=== PATIENT | male | born 1950 | race Caucasian/White ===

== ENCOUNTER 2023-10-13 09:32 | Inpatient (IN) | payer OTHER ==
[2023-10-13 11:12] LABS: #Basophils 0.1 thou/uL (0.0-0.2); #Eosinphils 0.3 thou/uL (0.0-0.7); #Monocytes 0.7 thou/uL (0.11-0.59); #Neutrophils 7.6 thou/uL (1.40-6.50); %Basophils 0.9 % (0.0-1.0); %Eosinophils 2.7 % (0.0-10.0); %Lymphocytes 10.7 % (21.0-51.0); %Monocytes 7.2 % (0.0-10.0); %Neutrophils 78.2 % (42.0-75.0); Hematocrit 44.9 % (42.0-52.0); Mean Corpuscular HGB CONC 35.6 g/dL (32.0-36.0); Mean Platelet Volume 8.2 fL (7.4-10.4); Platelet Count 328 10x3/uL (130-400); RBC Distribution Width 12.2 % (11.5-14.5); Red Blood Cell (RBC) Count 5.16 mill/uL (4.70-6.10); White Blood Cell (WBC) Count 9.8 10x3/uL (4.8-10.8)
[2023-10-13 11:20] LABS: INR-International Normal Ratio 1.1; Prothrombin Time 14.8 sec (12.0-14.7)
[2023-10-13 11:21] LABS: PTT 30.1 sec (22.9-36.1)
[2023-10-13 11:37] LABS: ALT (SGPT) 9 U/L (8-55); AST (SGOT) 11 U/L (5-34); Albumin 3.6 g/dL (3.4-4.8); Alkaline Phosphatase 85 U/L (40-110); Anion Gap 12 mmol/L (10-20); BUN (Urea Nitrogen) 12 mg/dL (8.4-25.7); Bilirubin, Total 0.7 mg/dL (0.2-1.2); Calc. Creatinine Clearance 0 mL/min (70-130); Calcium 9.1 mg/dL (7.8-10.44); Carbon Dioxide 24 mmol/L (23-31); Chloride 100 mmol/L (98-107); Estimated GFR 81; Globulin 3.6 g/dL (2.4-3.5); Glucose 245 mg/dL (83-110); Potassium 4.3 mmol/L (3.5-5.1); Protein, Total 7.2 g/dL (5.8-8.1); Sodium 132 mmol/L (136-145)
[2023-10-13 11:38] LABS: Acetaminophen Less than 10 mcg/mL (10.0-30.0); Alcohol Less than 10.0 mg/dL (Less than 10); Lipase 38 U/L (8-78); Salicylate Less than 8.0 mg/dL (15.0-30.0)
[2023-10-13 11:41] LABS: Troponin I Less than 0.010 ng/mL (< 0.028)
[2023-10-13] MEDS ORDERED: Aspirin Chewable 81 MG TAB ONE (11:45)
[2023-10-13 11:52] LABS: Bacteria/HPF None Seen HPF (None Seen); Bilirubin Negative (Negative); Blood, Urine Negative (Negative); CAUTI Indications for Culture Alt mental st,lethar; Clarity Clear (Clear); Glucose, Urine (Dipstick) 500 mg/dL (Negative); Ketone, Urine Negative (Negative); Leukocyte Negative Leu/uL (Negative); Nitrite Negative (Negative); Protein, Urine (Dipstick) 50 mg/dL (Neg-Trace); RBC/HPF None Seen HPF (0-3); Specific Gravity, Urine 1.024 (1.002-1.036); Squamous Epithelial 0-3 HPF (0-3); WBC/HPF 0-3 HPF (0-3)
[2023-10-13 11:54] LABS: Urine Culture Reflex No No
[2023-10-13 12:01] LABS: Amphetamine Not Detected (NotDetected); Barbiturates Screen Not Detected (NotDetected); Benzodiazepine Screen Detected (NotDetected); Cocaine Metabolite Screen Not Detected (NotDetected); Methadone Not Detected (NotDetected); Methamphetamine Not Detected (NotDetected); Opiate Screen Not Detected (NotDetected); Oxycodone Screen Not Detected (NotDetected); Phencyclidine (PCP) Not Detected (NotDetected); THC/Cannabinoid Screen Not Detected (NotDetected); Tricyclic Screen Not Detected (NotDetected)
[2023-10-13] MEDS ORDERED: hydrALAZINE 20 MG/ML VIAL SLOW IVP PRN (12:18)
[2023-10-13] MEDS ORDERED: Acetaminophen 650 MG Suppository PR PRN (12:18)
[2023-10-13] MEDS ORDERED: Ondansetron PF 4 MG/2 ML Vial IVP PRN (12:18)
[2023-10-13] MEDS ORDERED: Ondansetron ODT 4 MG TAB PO PRN (12:18)
[2023-10-13] MEDS ORDERED: Magnevist 469MG/ML 20 ML VIAL ONE (13:38)
[2023-10-13 14:55] VITALS: BMI 29.1
[2023-10-13] MEDS: Atorvastatin Calcium 40 MG TAB PO SCH (21:46)
[2023-10-14 05:26] LABS: #Basophils 0.1 thou/uL (0.0-0.2); #Eosinphils 0.3 thou/uL (0.0-0.7); #Monocytes 0.9 thou/uL (0.11-0.59); #Neutrophils 7.2 thou/uL (1.40-6.50); %Basophils 0.8 % (0.0-1.0); %Eosinophils 2.5 % (0.0-10.0); %Lymphocytes 15.2 % (21.0-51.0); %Monocytes 9.4 % (0.0-10.0); %Neutrophils 71.8 % (42.0-75.0); Hematocrit 41.1 % (42.0-52.0); Hemoglobin 14.4 g/dL (14.0-18.0); Mean Corpuscular Hemoglobin 31.1 pg (27.0-31.0); Mean Corpuscular Volume 88.8 fl (78.0-98.0); Mean Platelet Volume 8.2 fL (7.4-10.4); Platelet Count 320 10x3/uL (130-400); RBC Distribution Width 12.3 % (11.5-14.5); Red Blood Cell (RBC) Count 4.63 mill/uL (4.70-6.10)
[2023-10-14 05:56] LABS: Anion Gap 13 mmol/L (10-20); BUN (Urea Nitrogen) 14 mg/dL (8.4-25.7); Calc. Creatinine Clearance 98 mL/min (70-130); Calcium 9.1 mg/dL (7.8-10.44); Carbon Dioxide 22 mmol/L (23-31); Cardiac Risk 5.1 (Less than 4.5); Chloride 102 mmol/L (98-107); Cholesterol 173 mg/dl (< 200 Desired); Estimated GFR 90; Glucose 263 mg/dL (83-110); HDL Cholesterol 34 mg/dL (>60 Neg Risk); LDL Cholesterol, Calculated 104 mg/dL; Potassium 4.4 mmol/L (3.5-5.1); Sodium 133 mmol/L (136-145); Triglycerides 175 mg/dL (Less than 150)
[2023-10-14] MEDS ORDERED: Dextrose 5% in Water 1,000 ML IV PRN (08:01)
[2023-10-14] MEDS ORDERED: Dextrose 50% Abboject 50 ML SYRINGE SLOW IVP PRN (08:01)
[2023-10-14] MEDS ORDERED: Glucagon 1 MG/ML KIT IM PRN (08:01)
[2023-10-14] MEDS: Insulin NPH Human Isophane 100 UNITS/ML (10 ML VIAL) SC SCH (09:37)
[2023-10-14] MEDS: Aspirin 81 mg Enteric Coated Tablet PO SCH (09:38)
[2023-10-14] MEDS: Levothyroxine Sodium 25 MCG TAB PO SCH (09:38)
[2023-10-14] MEDS: cefTRIAXone\\ROCEPHIN 1 GM in Sodium Chloride 0.9% 100 ML IVPB SCH (14:23)
[2023-10-14] MEDS: Carvedilol 3.125 MG TAB PO SCH (18:38)
[2023-10-14] MEDS: HumaLOG 300 UNITS/3 ML VIAL SC PRN ×2 (18:43→22:10)
[2023-10-14] MEDS ORDERED: Insulin NPH Human Isophane 100 UNITS/ML (10 ML VIAL) SC SCH (21:00)
[2023-10-14] MEDS: Atorvastatin Calcium 40 MG TAB PO SCH (22:11)
[2023-10-15] MEDS ORDERED: Lidocaine 1% w/Epinephrine 1:100K 20 ML VIAL FS SCH (06:15)
[2023-10-15] MEDS ORDERED: Bupivacaine/Epinephrine 0.25% 30 ML VIAL FS SCH (06:15)
[2023-10-15] MEDS: HumaLOG 300 UNITS/3 ML VIAL SC PRN ×2 (06:41→19:29)
[2023-10-15] MEDS ORDERED: HumaLOG 300 UNITS/3 ML VIAL SC PRN (07:53)
[2023-10-15] MEDS: Insulin NPH Human Isophane 100 UNITS/ML (10 ML VIAL) SC SCH ×2 (11:00→20:55)
[2023-10-15] MEDS: Aspirin 81 mg Enteric Coated Tablet PO SCH (11:03)
[2023-10-15] MEDS: Levothyroxine Sodium 25 MCG TAB PO SCH (11:03)
[2023-10-15] MEDS: Carvedilol 3.125 MG TAB PO SCH ×2 (11:04→19:29)
[2023-10-15] MEDS: cefTRIAXone\\ROCEPHIN 1 GM in Sodium Chloride 0.9% 100 ML IVPB SCH (14:19)
[2023-10-15] MEDS ORDERED: Lidocaine 2% PF 100 mg/5 ml Syringe ONE (14:42)
[2023-10-15] MEDS ORDERED: Lidocaine 1% w/Epinephrine 1:100K 20 ML VIAL ONE (14:43)
[2023-10-15] MEDS: Atorvastatin Calcium 40 MG TAB PO SCH (20:54)
[2023-10-15] MEDS: Acetaminophen 325 MG TAB PO PRN (20:59)
[2023-10-16] MEDS: HumaLOG 300 UNITS/3 ML VIAL SC PRN ×4 (05:33→21:18)
[2023-10-16] MEDS: Levothyroxine Sodium 25 MCG TAB PO SCH (09:04)
[2023-10-16] MEDS: Carvedilol 3.125 MG TAB PO SCH ×2 (09:04→17:12)
[2023-10-16] MEDS: Aspirin 81 mg Enteric Coated Tablet PO SCH (09:04)
[2023-10-16] MEDS: Insulin NPH Human Isophane 100 UNITS/ML (10 ML VIAL) SC SCH ×2 (09:05→21:17)
[2023-10-16] MEDS: cefTRIAXone\\ROCEPHIN 1 GM in Sodium Chloride 0.9% 100 ML IVPB SCH (12:27)
[2023-10-16] MEDS: Atorvastatin Calcium 40 MG TAB PO SCH (21:18)
[2023-10-17] MEDS: HumaLOG 300 UNITS/3 ML VIAL SC PRN ×4 (05:58→21:28)
[2023-10-17] MEDS: Carvedilol 3.125 MG TAB PO SCH ×2 (08:53→17:42)
[2023-10-17] MEDS: Aspirin 81 mg Enteric Coated Tablet PO SCH (08:53)
[2023-10-17] MEDS: Insulin NPH Human Isophane 100 UNITS/ML (10 ML VIAL) SC SCH ×2 (08:54→21:28)
[2023-10-17] MEDS: Levothyroxine Sodium 25 MCG TAB PO SCH (08:54)
[2023-10-17] MEDS: Acetaminophen 325 MG TAB PO PRN ×2 (10:57→17:42)
[2023-10-17] MEDS: cefTRIAXone\\ROCEPHIN 1 GM in Sodium Chloride 0.9% 100 ML IVPB SCH (13:07)
[2023-10-17] MEDS: Atorvastatin Calcium 40 MG TAB PO SCH (21:28)
[2023-10-18] MEDS: HumaLOG 300 UNITS/3 ML VIAL SC PRN ×3 (05:56→17:56)
[2023-10-18] MEDS ORDERED: Furosemide 20 MG TAB PO SCH (09:00)
[2023-10-18] MEDS: Levothyroxine Sodium 25 MCG TAB PO SCH (09:08)
[2023-10-18] MEDS: Carvedilol 3.125 MG TAB PO SCH ×2 (09:08→17:55)
[2023-10-18] MEDS: Insulin NPH Human Isophane 100 UNITS/ML (10 ML VIAL) SC SCH ×2 (09:08→21:11)
[2023-10-18] MEDS: Lisinopril 20 MG TAB PO SCH (09:09)
[2023-10-18] MEDS: Aspirin 81 mg Enteric Coated Tablet PO SCH (09:09)
[2023-10-18 09:20] LABS: #Basophils 0.1 thou/uL (0.0-0.2); #Eosinphils 0.2 thou/uL (0.0-0.7); #Monocytes 1.1 thou/uL (0.11-0.59); #Neutrophils 7.7 thou/uL (1.40-6.50); %Basophils 0.8 % (0.0-1.0); %Eosinophils 1.6 % (0.0-10.0); %Lymphocytes 13.1 % (21.0-51.0); %Monocytes 10.3 % (0.0-10.0); %Neutrophils 73.9 % (42.0-75.0); Hematocrit 37.4 % (42.0-52.0); Hemoglobin 13.3 g/dL (14.0-18.0); Mean Corpuscular HGB CONC 35.6 g/dL (32.0-36.0); Mean Corpuscular Hemoglobin 31.3 pg (27.0-31.0); Mean Platelet Volume 8.4 fL (7.4-10.4); Platelet Count 327 10x3/uL (130-400); RBC Distribution Width 12.3 % (11.5-14.5); Red Blood Cell (RBC) Count 4.25 mill/uL (4.70-6.10); White Blood Cell (WBC) Count 10.4 10x3/uL (4.8-10.8)
[2023-10-18 09:38] LABS: INR-International Normal Ratio 1.2; Prothrombin Time 15.3 sec (12.0-14.7)
[2023-10-18 09:39] LABS: PTT 37.8 sec (22.9-36.1)
[2023-10-18 09:48] LABS: ALT (SGPT) Less than 7 U/L (8-55); AST (SGOT) 8 U/L (5-34); Albumin 3.3 g/dL (3.4-4.8); Alkaline Phosphatase 74 U/L (40-110); Anion Gap 14 mmol/L (10-20); BUN (Urea Nitrogen) 14 mg/dL (8.4-25.7); Bilirubin, Total 0.5 mg/dL (0.2-1.2); Calc. Creatinine Clearance 122 mL/min (70-130); Calcium 9.3 mg/dL (7.8-10.44); Carbon Dioxide 22 mmol/L (23-31); Chloride 98 mmol/L (98-107); Estimated GFR 97; Globulin 3.9 g/dL (2.4-3.5); Glucose 188 mg/dL (83-110); Magnesium 2.1 mg/dL (1.6-2.6); Potassium 4.2 mmol/L (3.5-5.1); Protein, Total 7.2 g/dL (5.8-8.1); Sodium 130 mmol/L (136-145)
[2023-10-18] MEDS: Acetaminophen 325 MG TAB PO PRN (09:52)
[2023-10-18] MEDS: cefTRIAXone\\ROCEPHIN 1 GM in Sodium Chloride 0.9% 100 ML IVPB SCH (12:27)
[2023-10-18] MEDS ORDERED: Doxycycline 100 MG CAP PO SCH (13:15)
[2023-10-18] MEDS: Cephalexin 250 MG CAP PO SCH (17:55)
[2023-10-18] MEDS: Atorvastatin Calcium 40 MG TAB PO SCH (21:11)
[2023-10-18] MEDS: Doxycycline 100 MG CAP PO SCH (21:11)
[2023-10-19] MEDS: Cephalexin 250 MG CAP PO SCH ×4 (00:33→18:20)
[2023-10-19 05:05] LABS: Anion Gap 12 mmol/L (10-20); BUN (Urea Nitrogen) 18 mg/dL (8.4-25.7); Calc. Creatinine Clearance 121 mL/min (70-130); Calcium 9.2 mg/dL (7.8-10.44); Carbon Dioxide 25 mmol/L (23-31); Chloride 99 mmol/L (98-107); Estimated GFR 97; Glucose 126 mg/dL (83-110); Magnesium 2.1 mg/dL (1.6-2.6); Potassium 3.9 mmol/L (3.5-5.1); Sodium 132 mmol/L (136-145)
[2023-10-19] MEDS ORDERED: Levothyroxine Sodium 50 MCG TAB PO SCH (08:15)
[2023-10-19] MEDS: Aspirin 81 mg Enteric Coated Tablet PO SCH (09:36)
[2023-10-19] MEDS: Lisinopril 20 MG TAB PO SCH (09:36)
[2023-10-19] MEDS: Doxycycline 100 MG CAP PO SCH ×2 (09:36→21:17)
[2023-10-19] MEDS: Carvedilol 3.125 MG TAB PO SCH ×2 (09:37→18:20)
[2023-10-19] MEDS: Insulin NPH Human Isophane 100 UNITS/ML (10 ML VIAL) SC SCH ×2 (09:37→21:17)
[2023-10-19] MEDS: HumaLOG 300 UNITS/3 ML VIAL SC PRN (18:21)
[2023-10-19] MEDS: Atorvastatin Calcium 40 MG TAB PO SCH (21:17)
[2023-10-20] MEDS: Cephalexin 250 MG CAP PO SCH ×4 (01:03→18:31)
[2023-10-20] MEDS ORDERED: Levothyroxine Sodium 50 MCG TAB PO SCH (06:00)
[2023-10-20 06:23] LABS: Anion Gap 12 mmol/L (10-20); BUN (Urea Nitrogen) 16 mg/dL (8.4-25.7); Calc. Creatinine Clearance 128 mL/min (70-130); Calcium 9.3 mg/dL (7.8-10.44); Carbon Dioxide 22 mmol/L (23-31); Chloride 102 mmol/L (98-107); Estimated GFR 98; Glucose 176 mg/dL (83-110); Potassium 4.1 mmol/L (3.5-5.1); Sodium 132 mmol/L (136-145)
[2023-10-20] MEDS: Lisinopril 20 MG TAB PO SCH (09:50)
[2023-10-20] MEDS: Doxycycline 100 MG CAP PO SCH (09:50)
[2023-10-20] MEDS: Insulin NPH Human Isophane 100 UNITS/ML (10 ML VIAL) SC SCH (09:51)
[2023-10-20] MEDS: Aspirin 81 mg Enteric Coated Tablet PO SCH (09:51)
[2023-10-20] MEDS: HumaLOG 300 UNITS/3 ML VIAL SC PRN ×3 (09:51→18:33)
[2023-10-20] MEDS: Carvedilol 3.125 MG TAB PO SCH ×2 (09:51→18:31)
[2023-10-20 19:55] VITALS: BP 124/71; TEMP 97.4
== END 2023-10-20 20:35 | DRG 65 ==
LOC: EEVIPCON 09:32 → ERS 09:32 → 2SE 14:23
PROVIDERS: ADMIT Internal Medicine; ATTEND Family Medicine
PROC: 0J970ZZ Drainage of Back Subcutaneous Tissue and Fascia, Open Approach (ICD-10-PCS; principal; 2023-10-15)
DX: I63.432 Cerebral infarction due to embolism of left posterior cerebral artery (principal); E87.1 Hypo-osmolality and hyponatremia; G81.91 Hemiplegia, unspecified affecting right dominant side; L02.212 Cutaneous abscess of back [any part, except buttock and flank]; I47.10 Supraventricular tachycardia, unspecified; I63.89 Other cerebral infarction; I25.10 Atherosclerotic heart disease of native coronary artery without angina pectoris; G47.33 Obstructive sleep apnea (adult) (pediatric); I10 Essential (primary) hypertension; E78.5 Hyperlipidemia, unspecified; E03.9 Hypothyroidism, unspecified; R29.6 Repeated falls; E78.1 Pure hyperglyceridemia; Z88.0 Allergy status to penicillin; Z88.8 Allergy status to other drugs, medicaments and biological substances; Z79.899 Other long term (current) drug therapy; Z79.890 Hormone replacement therapy; Z79.4 Long term (current) use of insulin; Z79.82 Long term (current) use of aspirin; Z79.2 Long term (current) use of antibiotics; E11.51 Type 2 diabetes mellitus with diabetic peripheral angiopathy without gangrene
CPT/HCPCS: 36415; 36416; 70450; 70553; 71045; 80048; 80053; 80061; 80306; 80307; 81001; 83605; 83690; 83735; 84443; 84484; 85025; 85610; 85730; 86850; 86900; 86901; 93005; 93306; 93880; 95711; 95819; 97139; A9579; J0696; J1650; J1815; J3490